=== PATIENT | male | born 1995 | race Caucasian/White ===

== ENCOUNTER 2021-06-30 16:50 | Emergency (ER) | payer OTHER ==
[~2021-06-30] VITALS: Ht 172.7 cm; Wt 63.0 kg
[2021-06-30 19:16] VITALS: BP 105/75
== END 2021-06-30 19:17 | disposition home or self-care (01) ==
LOC: ER 16:50
DX: U07.1 COVID-19 (principal); J02.9 Acute pharyngitis, unspecified; R09.81 Nasal congestion; R50.9 Fever, unspecified; R05.9 Cough, unspecified; F17.200 Nicotine dependence, unspecified, uncomplicated
CPT/HCPCS: 87426; 99283

== ENCOUNTER 2022-02-01 13:16 | Emergency (ER) | payer OTHER ==
[~2022-02-01] VITALS: Ht 172.7 cm; Wt 67.0 kg
[2022-02-01 13:20] VITALS: BP 131/60
[2022-02-01] MEDS ORDERED: ALBUTEROL 6.7GM HFA INHALER ORI ONE (15:30)
[2022-02-01] MEDS ORDERED: ACETAMINOPHEN 325MG TABLET PO ONE (15:30)
[2022-02-01] MEDS ORDERED: ACET-2708 MT (16:08)
[2022-02-01] MEDS ORDERED: ALBU6.7H9 INH (16:08)
[2022-02-01] MEDS ORDERED: MED4 MT (16:08)
== END 2022-02-01 17:07 | disposition left against medical advice (07) ==
LOC: ER 13:16
DX: B34.9 Viral infection, unspecified (principal); Z20.822 Contact with and (suspected) exposure to COVID-19; R03.0 Elevated blood-pressure reading, without diagnosis of hypertension
CPT/HCPCS: 71045; 87426; 94640; 99284